=== PATIENT | female | born 1990 | race Hispanic/Latino ===

== ENCOUNTER 2022-08-07 08:46 | Emergency (ER) | payer BC, OTHER ==
[~2022-08-07] VITALS: Ht 162.6 cm; Wt 102.5 kg
[~2022-08-07 08:46] MED LIST: GABA-529 PO; LISI10TA24 PO; METF-444 PO
[2022-08-07 12:10] LABS: BASOPHILS % (AUTO) 0.5 % (0.0-5.0); EOSINOPHILS % (AUTO) 1.1 % (0.0-8.0); HEMATOCRIT 39.2 % (36-48); LYMPHOCYTES % (AUTO) 24.5 % (21.0-51.0); MEAN CORPUSCULAR HEMOGLOBIN 28.3 pg (27.0-33.0); MEAN CORPUSCULAR HGB CONC 35.2 g/dL (32.0-36.0); MEAN CORPUSCULAR VOLUME 80.5 fL (79-99); MONOCYTES % (AUTO) 5.9 % (3.0-13.0); NEUTROPHILS % (AUTO) 67.5 % (40.0-77.0); PLATELET COUNT (AUTO) 212 K/uL (130-400); RED BLOOD CELL COUNT(AUTO) 4.87 MIL/uL (4.00-5.50); RED CELL DISTRIBUTION WIDTH 12.8 % (11.0-15.5); WHITE BLOOD COUNT (AUTO) 13.3 K/uL (4.8-10.8)
[2022-08-07 12:59] LABS: ALBUMIN 3.6 g/dL (3.5-5.0); CREATININE 0.5 mg/dL (0.5-1.5); TOTAL PROTEIN, SERUM 7.5 g/dL (6.0-8.3)
[2022-08-07] MEDS ORDERED: METF-444 PO (13:18)
[2022-08-07] MEDS ORDERED: GABA300C PO (13:18)
[2022-08-07] MEDS: 0.9%NACL 1000ML 1,000 ML IV ONE (13:23)
[2022-08-07] MEDS: GABAPENTIN 300 MG CAPSULE PO SCH (13:24)
[2022-08-07 14:11] VITALS: BP 157/85
[2022-08-07 14:23] LABS: APPEARANCE,URINE CLEAR (CLEAR); BILIRUBIN,URINE NEGATIVE (NEGATIVE); COLOR,URINE LIGHT-YELLOW (YELLOW); GLUCOSE, URINE (UA) >=1000 mg/dL (NEGATIVE); KETONES,URINE NEGATIVE (NEGATIVE); LEUKOCYTE ESTERASE ,URINE NEGATIVE Leu/uL (NEGATIVE); NITRATE,URINE NEGATIVE (NEGATIVE); OCCULT BLOOD,URINE NEGATIVE (NEGATIVE); PH,URINE 5.5 (5.0-8.0); PROTEIN,URINE 10 mg/dL (NEGATIVE); UROBILINOGEN,URINE 0.2 mg/dL (0.2-1.0)
[2022-08-07 14:29] LABS: MUCUS,URINE RARE LPF (None Seen); SQUAMOUS EPITHELIAL CELL,UR RARE /HPF (0-2)
== END 2022-08-07 14:13 | disposition home or self-care (01) ==
LOC: EDH 08:46
DX: E11.40 Type 2 diabetes mellitus with diabetic neuropathy, unspecified (principal); E11.65 Type 2 diabetes mellitus with hyperglycemia; E11.9 Type 2 diabetes mellitus without complications; I10 Essential (primary) hypertension; M79.661 Pain in right lower leg; M79.662 Pain in left lower leg; Z90.721 Acquired absence of ovaries, unilateral; Z79.84 Long term (current) use of oral hypoglycemic drugs; Z91.199 Patient's noncompliance with other medical treatment and regimen due to unspecified reason
CPT/HCPCS: 99284; 96360; 93971; 80053; 85025; 82010; 81001; 36415; J7030

== ENCOUNTER 2024-01-29 19:43 | Emergency (ER) | payer BC ==
[~2024-01-29] VITALS: Ht 162.6 cm; Wt 112.9 kg
[~2024-01-29 19:43] MED LIST changes: +GABA300C PO
[2024-01-29] MEDS: HYDRALAZINE 20MG/ML VIAL IV ONE (22:01)
[2024-01-29 22:16] VITALS: BP 159/72; PULSE 98; RESP 18; O2SAT 100
== END 2024-01-29 22:21 | disposition home or self-care (01) ==
LOC: EDH 19:43
DX: S05.12XA Contusion of eyeball and orbital tissues, left eye, initial encounter (principal); I10 Essential (primary) hypertension; E11.9 Type 2 diabetes mellitus without complications; Z79.84 Long term (current) use of oral hypoglycemic drugs; Z79.899 Other long term (current) drug therapy; Z98.890 Other specified postprocedural states; W18.39XA Other fall on same level, initial encounter; Y93.89 Activity, other specified; Y92.89 Other specified places as the place of occurrence of the external cause; Y99.8 Other external cause status
CPT/HCPCS: 99285; 70450; 96374; 72125; 70486; J0360

== ENCOUNTER 2024-04-11 10:39 | Emergency (ER) | payer BC ==
[~2024-04-11] VITALS: Ht 165.1 cm; Wt 110.2 kg
[2024-04-11] MEDS: DEXAMETHASONE SOD PHOSPHATE 4 MG/ML 1ML VIAL IM ONE (11:00)
[2024-04-11] MEDS: ACETAMINOPHEN 500 MG TABLET PO ONE (11:01)
[2024-04-11] MEDS ORDERED: IBUP-2077 PO (11:34)
[2024-04-11 11:54] VITALS: BP 148/100; PULSE 98; RESP 18; O2SAT 99
== END 2024-04-11 11:53 | disposition home or self-care (01) ==
LOC: EDH 10:39
DX: S63.601A Unspecified sprain of right thumb, initial encounter (principal); E11.9 Type 2 diabetes mellitus without complications; I10 Essential (primary) hypertension; Z79.899 Other long term (current) drug therapy; Z98.890 Other specified postprocedural states; X58.XXXA Exposure to other specified factors, initial encounter; Y93.89 Activity, other specified; Y92.89 Other specified places as the place of occurrence of the external cause; Y99.0 Civilian activity done for income or pay
CPT/HCPCS: 99284; 73130; 96372; 29130; J1100